=== PATIENT | female | born 1970 | race Caucasian/White ===

== ENCOUNTER 2024-03-22 11:36 | Emergency (ER) | payer BC, SELFPAY ==
[2024-03-22 12:04] VITALS: BP 137/102
--- NOTE | 2024-03-22 13:32 | ED.GENMED ---
History of Present Illness
General
Chief Complaint: Fall
Time Seen by Provider: 03/22/24 13:15
History of Present Illness
History of Present Illness:
Patient is a 54-year-old woman with history of Tucker-Danlos presenting to the emergency department after a fall. Patient states that she was going in her garage when she rolled her ankle on the step. She landed on her left hip. She not hit her
head or lose consciousness. She is not on any blood thinners. Her only complaint is to her right foot and left hip. She is ambulatory. Denies any numbness tingling. No weakness. Denies any pain else.
Past History
Past History
ED Past Medical History: None
ED Past Surgical History:
Social History
Tobacco: Non-smoker
Alcohol: None
Drug: None
Personal:
Living: with family
Phy Exam
Physical Exam
Physical Exam:
GENERAL: no acute distress
HEENT: atraumatic, extraocular muscles intact, no signs of entrapment, dentition intact, no other obvious trauma
NECK: no midline tenderness, normal range of motion, no other obvious trauma
BACK: no midline tenderness, no other obvious trauma
CHEST: no tenderness
LUNGS: clear to auscultation bilaterally
CARDIOVASCULAR: regular rate and rhythm
ABDOMEN: soft, non-tender, no masses, no other obvious trauma
PELVIS: stable, no obvious injury
EXTREMITIES: moving all extremities, distal pulses intact, right foot with bruising over the dorsal lateral aspect and tenderness in the plantar lateral aspect, no medial or lateral malleoli tenderness. Left hip with no tenderness palpation. Full
range of motion
NEUROLOGIC: awake, alert x 3, no focal deficits
Course
Orders/Labs/Results
Orders:
Orders
03/22/24 12:08
CR Foot - Right Min 3 Views Urgent
Comment:
Reason For Exam: pain
Hip, Left 2-3 Views [CR Hip - LT w/wo Pel 2-3 Vw*] Urgent
Comment:
Reason For Exam: pain
Include a pelvis x-ray?: Yes
03/22/24 13:31
Ortho Boot Right- Treatment ONCE
Short or tall?: Short
Ibuprofen [Motrin] 800 mg PO NOW STA
Vital Signs
Initial and Last Documented VS:
Initial Vital Signs
Temp Pulse Resp BP Pulse Ox
99.1 F 81 18 137/102 99
03/22/24 12:04 03/22/24 12:04 03/22/24 12:04 03/22/24 12:04 03/22/24 12:04
Last Documented Vital Signs
Temp Pulse Resp BP Pulse Ox
99.1 F 82 20 137/73 99
03/22/24 12:04 03/22/24 13:45 03/22/24 13:45 03/22/24 13:45 03/22/24 12:04
MDM/Problems Addressed
Differential Diagnosis Includes:
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 Vitals are unremarkable exam does show tenderness over the lateral right foot. Differential considered fracture versus sprain. X-ray
per my interpretation of the hip with no acute fracture. X-ray of the foot consistent with cuboid fracture that is nondisplaced. Given the patient is weightbearing and has minimal tenderness we will place her in a short walking boot. Patient
advised weightbearing as tolerated and to keep boot on until she has been evaluated by orthopedic. Will give ibuprofen. Will discharge at this time.
*Critical Care Note
Total Time (30-74mins, 75-104mins- exclusive of procedures): Not Applicable
ED Attending Note
-
Portions of this chart may have been created with voice recognition software.� Occasional wrong word or��sound alike� substitutions may have occurred due to the inherent limitations of voice recognition software.
Discharge Plan
Departure
Patient Disposition: Home (Routine Discharge)
Date of Disposition: 03/22/24
Time of Disposition: 13:56
Patient with high blood pressure during this ER visit?: No
Discharge Problem:
Cuboid fracture
Instructions: Walking Boot, Foot Fracture ED
Referrals:
Perfecto Sigala MD [Active] -
Stand Alone Forms: Return to Work
Activity Restrictions/Additional Instructions:
You were seen in the Emergency Department today for a foot fracture. While you were here we placed you in a boot. You may weight-bear on that foot as tolerated. Please follow-up with orthopedic surgery as discussed.
We would like for you to follow up with your primary care physician for further evaluation. If you experience fever, worsening of your symptoms, or develop any other new or concerning symptoms, please return to the Emergency Department immediately.
Please see the attached sheet for additional information.
Thank you for choosing us for your care.
Interventions
Interventions:
*Risk Screen - Suicide Last Done: 03/22/24 12:07
*General Assessment Last Done: 03/22/24 13:44
*Neglect/Abuse Screening Last Done: 03/22/24 13:44
ED-Musculoskeletal Assessment Last Done: 03/22/24 13:29
Discharge Date and Time
Print Language: TOGOLESE
[2024-03-22] MEDS: MOTRIN 800 MG PO (13:43)
[2024-03-22 13:45] VITALS: BP 137/73
== END 2024-03-22 14:04 | disposition home or self-care (01) ==
LOC: EMR 11:36
PROVIDERS: EMERGENCY PHYSICIAN Student in an Organized Health Care Education/Training Program
DX: S92.215A Nondisplaced fracture of cuboid bone of left foot, initial encounter for closed fracture (principal); W10.8XXA Fall (on) (from) other stairs and steps, initial encounter
CPT/HCPCS: 99283; 73502; 73630

== ENCOUNTER 2024-09-20 00:39 | Emergency (ER) | payer BC, SELFPAY ==
[2024-09-20 00:42] VITALS: BP 172/90
[2024-09-20 01:03] LABS: % Basophils 0.5 % (0-2); % Eosinophils 2.3 % (0-6); % Immature Granulocytes 0.2 % (0-0.5); % Lymphocytes 30.3 % (20.5-51.1); % Monocytes 8.3 % (1.7-9.3); % Neutrophils 58.4 % (42.2-75.2); Absolute Eosinophils 0.2 10^3/uL (0-0.7); Absolute Lymphocytes 2.6 10^3/uL (1.2-3.4); Absolute Monocytes 0.7 10^3/uL (0.1-0.6); Absolute Neutrophils 5.1 10^3/uL (1.4-6.5); Hematocrit 39.4 % (37.0-47.0); Hemoglobin 14.1 g/dL (12.0-16.0); Mean Corp Hgb Conc. 35.8 g/dL (33.0-37.0); Mean Corpuscular Hgb 30.1 pg (27.0-31.0); Mean Platelet Volume 9.6 fL (7.4-10.4); Nucleated Red Blood Cells % 0 %; Platelet Count 212 10^3/uL (130-400); Red Blood Cell Count 4.69 10^6/uL (4.20-5.40); Red Cell Dist. Width 12.6 % (11.5-14.5); White Blood Cell Count 8.7 10^3/uL (4.8-10.8)
[2024-09-20 01:29] LABS: ALT (SGPT) 121 U/L (0-35); AST (SGOT) 53 U/L (14-36); Albumin 4.3 g/dl (3.5-5.0); Alkaline Phosphatase 102 U/L (38-126); Blood Urea Nitrogen 22 mg/dl (7-17); Calcium 9.4 mg/dl (8.4-10.2); Carbon Dioxide 24 mmol/L (22-30); Chloride 110 mmol/L (98-107); Glucose 117 mg/dl (70-99); Lipase 276 U/L (23-300); Potassium 3.7 mmol/L (3.5-5.1); Sodium 141 mmol/L (135-145); Total Bilirubin 0.5 mg/dl (0.2-1.3); Total Protein 6.9 g/dl (6.3-8.2); eGFR > 60.00
[2024-09-20 01:30] LABS: Lactic Acid 0.8 mmol/L (0.7-2.0)
[2024-09-20 03:21] VITALS: BP 117/62; BMI 34.5
[2024-09-20 04:00] VITALS: BP 108/57
[2024-09-20 05:00] VITALS: BP 117/60
--- NOTE | 2024-09-20 05:07 | ED.GENMED ---
History of Present Illness
<Florence Calle PA-C - Last Filed: 09/20/24 10:24>
General
Chief Complaint: Abdominal Symptoms
Source: patient
Exam Limitations: none
Time Seen by Provider: 09/20/24 04:44
Nursing documentation reviewed up to this point in time: agreed with
History of Present Illness
History of Present Illness:
Note:
CHIEF COMPLAINT(S)
Abdominal pain.
HISTORY OF PRESENT ILLNESS
The patient is a 54-year-old female with a pmh of presenting with abdominal pain. The pain started today and is located in the mid-lower to left side of the abdomen, radiating to the back on the same side. The patient reports recent travel to
[place], returning a week ago, with the onset of diarrhea occurring one week after returning. The diarrhea persists, though it is less frequent than initially, having occurred up to 10-15 times a day at its peak. She did not have any diarrhea today
but she did have an episode yesterday. There is no blood noted in the stool, though there has been significant straining and wiping due to the diarrhea. She reports her has similar symptoms minus the pain. The patient denies nausea, burning
with urination, hematuria,urinary frequency.
PAST SURGICAL HISTORY
- Two sections
- Appendectomy
REVIEW OF SYSTEMS
See HPI
PLAN
A stool sample will attempted to be collected to identify any bacterial cause of the prolonged diarrhea. A CAT scan is planned to evaluate for possible diverticulitis or other abdominal issues. The patient will receive IV Toradol (ketorolac) for
pain management. An IV line will be placed for administration. Testing for a urinary tract infection will also be performed
DIFFERENTIAL DIAGNOSIS
The Differential Diagnosis includes, in no particular order and is not limited to:
- Gastroenteritis (possibly travel-related)
- Diverticulitis
- Urinary tract infection
- Inflammatory bowel disease
- Irritable bowel syndrome
- Bacterial enteritis
- Parasitic infection
- Abdominal abscess
- Pancreatitis
- Peptic ulcer disease
PHYSICAL EXAM
General: Patient is well appearing and in no acute distress; non-toxic
Skin: Warm and dry, no rashes or lesions
Head: Normocephalic, atraumatic
Eyes: Sclera non-icteric. EOMs intact.
Cardiac: Regular rate and rhythm, no murmurs
Peripheral Vascular: No lower extremity swelling or edema
Pulm: Normal respiratory effort, no wheezes, rales, or rhonchi
Abdomen: LLQ abdominal tenderness to palpation normoactive bowel sounds, no abdominal distension
Neuro: CN II-XII intact, no focal neurologic deficits.
Psychiatric: Appropriate mood and affect.
UPDATES
7:[address] scan results. Patient is not requesting any additional medication for pain or nausea. Patient has not had a bowel movement.
MDM/DISPOSITION
The patient is a 54-year-old female with a pmh of presenting with abdominal pain. The pain started today and is located in the mid-lower to left side of the abdomen, radiating to the back on the same side. Will send for CT scan.
Case signed out to Helen PICKENS pending CT scan results. Suspect diverticulitis vs gastroenteritis. Anticipate discharge.
Past History
<Florence Calle PA-C - Last Filed: 09/20/24 10:24>
Past History
ED Past Medical History: None
ED Past Surgical History:
Social History
Tobacco: Non-smoker
Alcohol: None
Drug: None
Personal:
Living: with family
Phy Exam
<Florence Calle PA-C - Last Filed: 09/20/24 10:24>
Physical Exam
Physical Exam:
see hpi
Course
<Florence Calle PA-C - Last Filed: 09/20/24 10:24>
Orders/Labs/Results
Orders:
Orders
09/20/24 00:54
Complete Blood Count/With Diff Urgent
Comprehensive Metabolic Panel Urgent
Lactate Level [Lactic Acid] Urgent
Lipase Urgent
09/20/24 05:37
CT Abd/pelvis W Iv Cont Urgent
Comment:
Reason For Exam: LLQ ab pain
Ketorolac [Toradol] 15 mg IV NOW STA
09/20/24 06:06
Urinalysis Reflex To Culture Urgent
Date Specimen was Collected: 09/20/24
Time Specimen was Collected: 06:05
Urine Microscopic Reflex Cult Urgent
09/20/24 07:28
0.9% Sodium Chloride 500 ml [Nss] 500 ml IV BOLUS
09/20/24 08:29
LevoFLOXacin [Levaquin] 750 mg PO NOW STA
MetroNIDAZOLE [Flagyl] 500 mg PO NOW STA
09/20/24 09:02
C DIFF [C difficile Antigen & Toxins] Urgent
ALEKSANDRA Source: Feces/Stool
Specimen Description:
Date Specimen was Collected: 09/20/24
Time Specimen was Collected: 08:32
Stool Culture Urgent
ALEKSANDRA Source: Feces/Stool
Specimen Description:
Date Specimen was Collected: 09/20/24
Time Specimen was Collected: 08:32
Abnormal Lab Results
09/20/24 09/20/24
00:54 06:06
Absolute Monos (auto) 0.7 H 10^3/uL
(0.1-0.6)
Chloride 110 H mmol/L
(98-107)
BUN 22 H mg/dl
(7-17)
Glucose 117 H mg/dl
(70-99)
AST 53 H U/L
(14-36)
ALT 121 H U/L
(0-35)
Ur Occult Blood Reflex 2+ A
(Negative)
Urine RBC 3-6 A /HPF
(0-2)
Urine Albumin (Reflex) 1+ A
(Neg - Trace)
09/20/24 00:54
09/20/24 00:54
Vital Signs
Initial and Last Documented VS:
Initial Vital Signs
Temp Pulse Resp BP Pulse Ox
36.5 C 74 22 172/90 98
09/20/24 00:42 09/20/24 00:42 09/20/24 00:42 09/20/24 00:42 09/20/24 00:42
Last Documented Vital Signs
Temp Pulse Resp BP Pulse Ox
97.6 F 64 20 136/85 96
09/20/24 07:32 09/20/24 07:32 09/20/24 07:32 09/20/24 07:32 09/20/24 07:32
<Giselle Morales PA-C - Last Filed: 09/20/24 14:29>
Orders/Labs/Results
Orders:
Orders
09/20/24 00:54
Complete Blood Count/With Diff Urgent
Comprehensive Metabolic Panel Urgent
Lactate Level [Lactic Acid] Urgent
Lipase Urgent
09/20/24 05:37
CT Abd/pelvis W Iv Cont Urgent
Comment:
Reason For Exam: LLQ ab pain
Ketorolac [Toradol] 15 mg IV NOW STA
09/20/24 06:06
Urinalysis Reflex To Culture Urgent
Date Specimen was Collected: 09/20/24
Time Specimen was Collected: 06:05
Urine Microscopic Reflex Cult Urgent
09/20/24 07:28
0.9% Sodium Chloride 500 ml [Nss] 500 ml IV BOLUS
09/20/24 08:29
LevoFLOXacin [Levaquin] 750 mg PO NOW STA
MetroNIDAZOLE [Flagyl] 500 mg PO NOW STA
09/20/24 09:02
C DIFF [C difficile Antigen & Toxins] Urgent
ALEKSANDRA Source: Feces/Stool
Specimen Description:
Date Specimen was Collected: 09/20/24
Time Specimen was Collected: 08:32
Stool Culture Urgent
ALEKSANDRA Source: Feces/Stool
Specimen Description:
Date Specimen was Collected: 09/20/24
Time Specimen was Collected: 08:32
Abnormal Lab Results
09/20/24 09/20/24
00:54 06:06
Absolute Monos (auto) 0.7 H 10^3/uL
(0.1-0.6)
Chloride 110 H mmol/L
(98-107)
BUN 22 H mg/dl
(7-17)
Glucose 117 H mg/dl
(70-99)
AST 53 H U/L
(14-36)
ALT 121 H U/L
(0-35)
Ur Occult Blood Reflex 2+ A
(Negative)
Urine RBC 3-6 A /HPF
(0-2)
Urine Albumin (Reflex) 1+ A
(Neg - Trace)
09/20/24 00:54
09/20/24 00:54
Vital Signs
Initial and Last Documented VS:
Initial Vital Signs
Temp Pulse Resp BP Pulse Ox
36.5 C 74 22 172/90 98
09/20/24 00:42 09/20/24 00:42 09/20/24 00:42 09/20/24 00:42 09/20/24 00:42
Last Documented Vital Signs
Temp Pulse Resp BP Pulse Ox
97.6 F 64 20 136/85 96
09/20/24 07:32 09/20/24 07:32 09/20/24 07:32 09/20/24 07:32 09/20/24 07:32
<Florence Calle PA-C - Last Filed: 09/20/24 10:24>
*Pulse Oximetry
SaO2: 94
Oxygen Mode of Delivery: Room air
Patient hypoxic: no
*Critical Care Note
Total Time (30-74mins, 75-104mins- exclusive of procedures): Not Applicable
<Giselle Morales PA-C - Last Filed: 09/20/24 14:29>
Update Note
Update Note:
THIS CASE WAS SIGNED OUT TO ME AT [address] READ:
CHIEF COMPLAINT(S)
Diarrhea and abdominal pain.
HISTORY OF PRESENT ILLNESS
The patient is a 54-year-old female presenting with diarrhea and abdominal pain. The symptoms began approximately one week after returning from a trip to [place]. The patient reports her boyfriend is experiencing similar symptoms. The diarrhea is not
as frequent currently but persists and is not bloody. PT WAS SEEN BY PREVIOUS PROVIDER WHO ORDERED LABS, CT SCAN AND GVAE TORADOL.
A CT scan revealed SEVEER SIGMOID diverticulosis without evidence of stranding or inflammation. The liver markers are slightly elevated, a finding that can occur with viral gastroenteritis. The patient reports severe pain in the area of
diverticulosis, and antibiotics have been initiated despite the absence of clear diverticulitis signs on the CT scan. The patient has an allergy to penicillin. She was advised against physical exertion during the course of antibiotics due to the
risk of tendon complications with levofloxacin. Incidental CT findings include mild bladder wall thickening, a small ovarian cyst on the left ovary, moderate lumbar spine disease, and a possible pancreatic ductal finding that is not clinically
relevant.
ADDITIONAL HISTORY OBTAINED FROM SOURCES OTHER THAN THE PATIENT
According to the patient, her boyfriend has the same symptoms.
CHRONIC MEDICAL CONDITIONS SIGNIFICANTLY AFFECTING CARE
Chronic conditions affecting care include diverticulosis.
PHYSICAL EXAM
- Pain in the left lower quadrant upon palpation
- No severe tenderness in the right quadrant or associated with appendicitis
PROBLEM LIST
- Acute: Diarrhea, abdominal pain
- Chronic: Diverticulosis
PLAN
Initiate treatment with levofloxacin and metronidazole. Advise the patient to avoid exercise while on antibiotics. Monitor for symptoms of worsening diarrhea, pain, or any signs of bleeding. Instruct the patient to return if symptoms escalate.
Follow up with primary care for liver enzyme evaluation post-recovery. A stool sample is requested before discharge for further analysis.
DIFFERENTIAL DIAGNOSIS
The Differential Diagnosis includes, in no particular order and is not limited to:
- Infectious diarrhea
- Diverticulitis
- Viral gastroenteritis
- Bacterial gastroenteritis
- Parasitic infection
- Inflammatory bowel disease
- Irritable bowel syndrome
- Pancreatitis
- Foodborne illness
- Medication side effect
PT WILL ATTEMPT TO GIVE STOOL PRIOR TO DISCHARGE
GIVEN HER LOCALIZED TENDERNESS TO LLQ WHERE SEVERE DIVERTICULOSIS IS, WILL EMPIRICALLLY TREAT WITH LEVAQUIN AND FLAGYL
pt
;s stool neg for c diff
culture pending
ED Attending Note
<Florence Calle PA-C - Last Filed: 09/20/24 10:24>
-
Portions of this chart may have been created with voice recognition software.� Occasional wrong word or��sound alike� substitutions may have occurred due to the inherent limitations of voice recognition software.
Discharge Plan
Departure
Patient Disposition: Home (Routine Discharge)
Patient with high blood pressure during this ER visit?: No
Condition: Fair
Covid-19: Not Applicable
Discharge Problem:
Diarrhea, Diverticulitis
Instructions: [place] Diet, Diverticulitis - Discharge instructions
Prescriptions:
New
levofloxacin 750 mg tablet
750 mg PO DAILY Qty: 5 0RF
metronidazole 500 mg tablet
500 mg PO Q8H 7 Days Qty: 21 0RF
Referrals:
NONE,* [Family Provider, Internal Medicine]
Activity Restrictions/Additional Instructions:
YOUR CAT SCAN SHOWS SEVERE DIVERTICULOSIS IN YOUR LEFT LOWER ABDOMEN - WE ARE PRESUMING TAHT YOU ALSO HAVE DIVERTICULITIS IN THIS AREA DUE TOT HE PAIN.
YOU SHOULD EAT A CLEAR LIQUID DIET FOR 24-48 HOURS TO GIVE YOUR BOWELS REST.
TAKE LEVAQUIN ONCE A DAY FOR 5 DAYS STARTING TOMORROW AND FLAGYL 3 TIMES A DAY FOR 7 DAYS.
YOU CAN FOLLOW UP WITH YOUR FAMILY DOCTOR WELL A GI DOCTOR
RETURN FOR: FEVER, WORSE PAIN, VOMITING, INABILITY TO TOLERATE LIQUIDS, BLOODY DIARRHEA OR ANY CONCERNS.
IF WE SENT A STOOL SAMPLE, WE WILL CALL YOU IN48 HOURS NEEDED
Interventions
Interventions:
*Risk Screen - Suicide Last Done: 09/20/24 00:42
*General Assessment Last Done: 09/20/24 03:21
*Neglect/Abuse Screening Last Done: 09/20/24 00:42
*ED- Fall Risk Assessment Last Done: 09/20/24 03:21
*ED COVID-19 Vaccine History Last Done: 09/20/24 03:21
*Nursing Disposition Last Done: 09/20/24 08:58
VT-Qbaeho-Pwzwqqzeut Assessment Last Done: 09/20/24 03:21
Discharge Date and Time
Discharge Date/Time: 09/20/24 09:06
Print Language: [place] ISLAND[place]
[2024-09-20] MEDS: TORADOL 15 MG IV (06:00)
[2024-09-20 06:05] VITALS: BP 118/63
[2024-09-20 06:27] LABS: Urine Albumin 1+ (Neg - Trace); Urine Bilirubin Negative (Negative); Urine Character Clear (Clear); Urine Color Yellow; Urine Glucose Negative (Negative); Urine Ketone Negative (Negative); Urine Leukocyte Negative (Negative); Urine Nitrite Negative (Negative); Urine Occult Blood 2+ (Negative); Urine Urobilinogen Negative (Neg - 1+)
[2024-09-20 06:47] LABS: Urine White Cell 0-2 /HPF (0-5)
[2024-09-20 07:32] VITALS: BP 136/85
[2024-09-20] MEDS: NSS 500 IV (07:43)
[2024-09-20] MEDS: LEVAQUIN 750 MG PO (09:01)
[2024-09-20] MEDS: FLAGYL 500 MG PO (09:01)
== END 2024-09-20 09:06 | disposition home or self-care (01) ==
LOC: EMR 00:39
PROVIDERS: Emergency Medicine; Physician Assistant; EMERGENCY PHYSICIAN Emergency Medicine
DX: K57.32 Diverticulitis of large intestine without perforation or abscess without bleeding (principal); R19.7 Diarrhea, unspecified; N83.202 Unspecified ovarian cyst, left side
CPT/HCPCS: 99285; 96374; 74177; 80053; 81003; 81015; 83605; 83690; 85025; 87045; 87046; 87077; 87324; 87427; 87449; Q9967

== ENCOUNTER → 2024-12-16 10:06 | Outpatient (REF) | payer BC, SELFPAY | LOC: RCS 10:06 | PROVIDERS: ATTENDING PHYSICIAN Student in an Organized Health Care Education/Training Program | DX: R07.9 Chest pain, unspecified (principal) | CPT/HCPCS: 93017; 93350 ==